=== PATIENT | male | born 1955 | race Caucasian/White ===

== ENCOUNTER → 2017-06-06 | Outpatient (CLI) | payer BC ==
[~2017-06-06] MED LIST: ASPI81TA85 PO; FIBE625T PO; INDA25TAB PO; LISI-538 PO; LOVA40TA PO; PANT40TA2 PO; VITA20008 PO
[2017-06-06 08:43] LABS: ALBUMIN/GLOBULIN RATIO 1.21 (1.00-1.93); ALKALINE PHOSPHATASE 120 U/L (45-117); ALT/SGPT 57 U/L (12-78); ANION GAP 7 MEQ/L (8-16); AST/SGOT 45 U/L (7-37); BILIRUBIN,TOTAL 0.5 MG/DL (0.2-1.0); BLOOD UREA NITROGEN 14 MG/DL (7-18); CALCIUM LEVEL 8.8 MG/DL (8.8-10.2); CARBON DIOXIDE LEVEL 31 MEQ/L (21-32); CHLORIDE LEVEL 104 MEQ/L (98-107); CHOLESTEROL LEVEL 156 MG/DL (<200); CREATININE FOR GFR 1.17 MG/DL (0.70-1.30); GLOMERULAR FILTRATION RATE > 60.0 (>49); GLUCOSE, FASTING 164 MG/DL (80-110); POTASSIUM SERUM 3.8 MEQ/L (3.5-5.1); SODIUM LEVEL 142 MEQ/L (136-145); TOTAL PROTEIN 7.3 GM/DL (6.4-8.2); TRIGLYCERIDES LEVEL 196 MG/DL (<150)
== END ==
LOC: M LAB 07:29
PROVIDERS: ATTEND Family Medicine
DX: E78.5 Hyperlipidemia, unspecified (principal); K75.81 Nonalcoholic steatohepatitis (NASH); R73.03 Prediabetes; Z12.5 Encounter for screening for malignant neoplasm of prostate
CPT/HCPCS: 36415; 80053; 80061; 83036; G0103

== ENCOUNTER 2017-07-29 15:59 | Emergency (ER) | payer BC ==
[2017-07-29] MEDS: ACETAMINOPHEN 325 MG TAB PO (21:07)
== END 2017-07-29 21:15 | disposition home or self-care (01) ==
LOC: M ED 15:59
DX: J11.1 Influenza due to unidentified influenza virus with other respiratory manifestations (principal); R04.2 Hemoptysis; I10 Essential (primary) hypertension; E78.5 Hyperlipidemia, unspecified; K21.9 Gastro-esophageal reflux disease without esophagitis; Z88.0 Allergy status to penicillin; Z88.8 Allergy status to other drugs, medicaments and biological substances
CPT/HCPCS: 99283

== ENCOUNTER → 2017-07-29 | Outpatient (CLI) | payer BC | LOC: M LRY 14:40 | DX: R04.2 Hemoptysis (principal); J84.10 Pulmonary fibrosis, unspecified | CPT/HCPCS: 71046 ==

== ENCOUNTER → 2017-11-29 | Outpatient (CLI) | payer BC ==
[2017-11-29 11:05] LABS: ANION GAP 9 MEQ/L (8-16); BLOOD UREA NITROGEN 14 MG/DL (7-18); CALCIUM LEVEL 9.1 MG/DL (8.8-10.2); CARBON DIOXIDE LEVEL 28 MEQ/L (21-32); CHLORIDE LEVEL 106 MEQ/L (98-107); CREATININE FOR GFR 1.06 MG/DL (0.70-1.30); GLOMERULAR FILTRATION RATE > 60.0 (>49); GLUCOSE, FASTING 154 MG/DL (70-100); POTASSIUM SERUM 3.7 MEQ/L (3.5-5.1); SODIUM LEVEL 143 MEQ/L (136-145)
[2017-11-29 11:18] LABS: ESTIMATED AVERAGE GLUCOSE 177 MG/DL (60-110); HEMOGLOBIN A1c 7.8 %
== END ==
LOC: M LAB 09:40
DX: R73.03 Prediabetes (principal)
CPT/HCPCS: 83036

== ENCOUNTER → 2017-12-04 | Outpatient (CLI) | payer BC | LOC: M ADAMS 11:27 | DX: R06.00 Dyspnea, unspecified (principal) | CPT/HCPCS: 84443 ==

== ENCOUNTER → 2017-12-04 | Outpatient (REF) | payer BC ==
[2017-12-04 13:42] LABS: FREE T4 0.98 NG/DL (0.76-1.46)
[2017-12-04 13:51] LABS: HEMATOCRIT 44.3 % (42.0-52.0); HEMOGLOBIN 15.3 g/dl (13.5-17.5); MEAN CORPUSCULAR HEMOGLOBIN 28.2 pg (27.0-33.0); MEAN CORPUSCULAR HGB CONC 34.5 g/dl (32.0-36.5); MEAN CORPUSCULAR VOLUME 81.7 fl (80.0-96.0); PLATELET COUNT, AUTOMATED 192 10^3/uL (150-450); RED BLOOD COUNT 5.42 10^6/uL (4.30-6.10); RED CELL DISTRIBUTION WIDTH 13.7 % (11.5-14.5); WHITE BLOOD COUNT 7.9 10^3/uL (4.0-10.0)
== END ==
LOC: M SFHCADAM 10:34
DX: R06.09 Other forms of dyspnea (principal)

== ENCOUNTER → 2018-01-26 | Outpatient (CLI) | payer BC ==
[2018-01-26 09:42] LABS: ALBUMIN 3.8 GM/DL (3.2-5.2); ALBUMIN/GLOBULIN RATIO 1.15 (1.00-1.93); ALKALINE PHOSPHATASE 108 U/L (45-117); ALT/SGPT 56 U/L (12-78); ANION GAP 8 MEQ/L (8-16); AST/SGOT 40 U/L (7-37); BILIRUBIN,TOTAL 0.4 MG/DL (0.2-1.0); BLOOD UREA NITROGEN 18 MG/DL (7-18); CALCIUM LEVEL 8.9 MG/DL (8.8-10.2); CARBON DIOXIDE LEVEL 31 MEQ/L (21-32); CHLORIDE LEVEL 105 MEQ/L (98-107); CHOLESTEROL LEVEL 133 MG/DL (<200); CHOLESTEROL RISK RATIO 3.594 (<5); CREATININE FOR GFR 1.23 MG/DL (0.70-1.30); GLOMERULAR FILTRATION RATE > 60.0 (>49); GLUCOSE, FASTING 136 MG/DL (70-100); HDL CHOLESTEROL 37 MG/DL (>40); NON-HDL-C 96 MG/DL; POTASSIUM SERUM 4.1 MEQ/L (3.5-5.1); SODIUM LEVEL 144 MEQ/L (136-145); TOTAL PROTEIN 7.1 GM/DL (6.4-8.2); TRIGLYCERIDES LEVEL 160 MG/DL (<150)
[2018-01-26 09:51] LABS: MALB URINE SIEMENS 10.6 MG/L
[2018-01-26 11:25] LABS: ESTIMATED AVERAGE GLUCOSE 143 MG/DL (60-110); HEMOGLOBIN A1c 6.6 %
== END ==
LOC: M LAB 08:42
DX: E11.9 Type 2 diabetes mellitus without complications (principal)

== ENCOUNTER → 2018-04-19 | Outpatient (CLI) | payer BC ==
[2018-04-19 10:00] LABS: ALBUMIN 4.1 GM/DL (3.2-5.2); ALBUMIN/GLOBULIN RATIO 1.32 (1.00-1.93); ALKALINE PHOSPHATASE 90 U/L (45-117); ALT/SGPT 53 U/L (12-78); ANION GAP 6 MEQ/L (8-16); AST/SGOT 43 U/L (7-37); BILIRUBIN,TOTAL 0.4 MG/DL (0.2-1.0); BLOOD UREA NITROGEN 20 MG/DL (7-18); CALCIUM LEVEL 9.6 MG/DL (8.8-10.2); CARBON DIOXIDE LEVEL 32 MEQ/L (21-32); CHLORIDE LEVEL 104 MEQ/L (98-107); CHOLESTEROL LEVEL 144 MG/DL (<200); GLOMERULAR FILTRATION RATE 59.7 (>49); GLUCOSE, FASTING 121 MG/DL (70-100); HDL CHOLESTEROL 40 MG/DL (>40); LDL CHOLESTEROL 78 MG/DL (<100); NON-HDL-C 104 MG/DL; SODIUM LEVEL 142 MEQ/L (136-145); TOTAL PROTEIN 7.2 GM/DL (6.4-8.2); TRIGLYCERIDES LEVEL 128 MG/DL (<150)
[2018-04-19 10:31] LABS: ESTIMATED AVERAGE GLUCOSE 126 MG/DL (60-110)
== END ==
LOC: M LAB 08:44
DX: E78.5 Hyperlipidemia, unspecified (principal); E11.9 Type 2 diabetes mellitus without complications
CPT/HCPCS: 80053

== ENCOUNTER → 2018-04-26 | Outpatient (CLI) | payer BC | LOC: M ADAMS 15:25 | DX: M54.31 Sciatica, right side (principal); M51.36 Other intervertebral disc degeneration, lumbar region; M51.37 Other intervertebral disc degeneration, lumbosacral region | CPT/HCPCS: 72100 ==

== ENCOUNTER → 2018-09-18 | Outpatient (REF) | payer BC ==
[~2018-09-18] MED LIST changes: -PANT40TA2 PO; +PANT40TA3 PO
[2018-09-18 13:10] LABS: BASO % 0.6 % (0.0-1.0); EOS # 0.1 10^3/uL (0.0-0.50); EOS % 1.4 % (0.0-3.0); HEMATOCRIT 28.3 % (42.0-52.0); HEMOGLOBIN 7.8 g/dl (13.5-17.5); LYMPH # 1.7 10^3/uL (1.5-4.5); MEAN CORPUSCULAR HEMOGLOBIN 18.8 pg (27.0-33.0); MEAN CORPUSCULAR HGB CONC 27.6 g/dl (32.0-36.5); MEAN CORPUSCULAR VOLUME 68.4 fl (80.0-96.0); MONO # 0.5 10^3/uL (0.0-0.8); MONO % 6.3 % (0.0-5.0); NEUTROPHILS # 4.9 10^3/uL (1.8-7.7); NEUTROPHILS % 68.1 % (36.0-66.0); PLATELET COUNT, AUTOMATED 313 10^3/uL (150-450); RED BLOOD COUNT 4.14 10^6/uL (4.30-6.10); WHITE BLOOD COUNT 7.3 10^3/uL (4.0-10.0)
[2018-09-18 13:21] LABS: ALBUMIN 3.9 GM/DL (3.2-5.2); BILIRUBIN,TOTAL 0.3 MG/DL (0.2-1.0); CALCIUM LEVEL 9.5 MG/DL (8.8-10.2); CREATININE FOR GFR 1.36 MG/DL (0.70-1.30); FREE T4 0.99 NG/DL (0.76-1.46); GLOMERULAR FILTRATION RATE 56.5 (>49); POTASSIUM SERUM 4.1 MEQ/L (3.5-5.1); THYROID STIMULATING HORMONE 1.09 uIU/ML (0.358-3.740); TOTAL PROTEIN 7.1 GM/DL (6.4-8.2)
[2018-09-18 14:22] LABS: HEMOGLOBIN A1c 5.2 %
== END ==
LOC: M SFHCADAM 09:39
PROVIDERS: ATTEND Family Medicine
DX: R06.09 Other forms of dyspnea (principal); E11.9 Type 2 diabetes mellitus without complications

== ENCOUNTER → 2018-09-18 | Outpatient (CLI) | payer BC ==
--- NOTE | 2018-09-19 04:08 | REP ---
Clinical: Dyspnea on exertion . Comparison: 12/04/2017 . Technique: PA and lateral. Findings: The mediastinum and cardiac silhouette are normal. The lung burns are clear and without acute consolidation, effusion, or pneumothorax. The skeletal structures are intact and normal. Impression: 1. No acute cardiopulmonary process. Electronically Signed by Juliocesar Cai MD 09/19/2018 04:00 A
== END ==
LOC: M ADAMS 09:41
PROVIDERS: ATTEND Family Medicine
DX: R06.09 Other forms of dyspnea (principal)

== ENCOUNTER → 2018-09-19 | Outpatient (REF) | payer BC ==
[~2018-09-19] MED LIST changes: +FERR325T3 PO; +METF500T13 PO; +VITA200021 PO; +XALA0.007 OU
[2018-09-19 20:00] LABS: BASO % 0.3 % (0.0-1.0); EOS # 0.1 10^3/uL (0.0-0.50); HEMATOCRIT 27.6 % (42.0-52.0); HEMOGLOBIN 7.6 g/dl (13.5-17.5); LYMPH # 2.6 10^3/uL (1.5-4.5); LYMPH % 27.3 % (24.0-44.0); MEAN CORPUSCULAR HEMOGLOBIN 18.9 pg (27.0-33.0); MEAN CORPUSCULAR HGB CONC 27.5 g/dl (32.0-36.5); MEAN CORPUSCULAR VOLUME 68.7 fl (80.0-96.0); MONO # 0.6 10^3/uL (0.0-0.8); MONO % 6.2 % (0.0-5.0); NEUTROPHILS # 6.1 10^3/uL (1.8-7.7); NEUTROPHILS % 64.7 % (36.0-66.0); PLATELET COUNT, AUTOMATED 317 10^3/uL (150-450); RED BLOOD COUNT 4.02 10^6/uL (4.30-6.10); WHITE BLOOD COUNT 9.5 10^3/uL (4.0-10.0)
[2018-09-19 20:15] LABS: CALCIUM LEVEL 9.1 MG/DL (8.8-10.2); CREATININE FOR GFR 1.51 MG/DL (0.70-1.30); GLOMERULAR FILTRATION RATE 50.1 (>49); PERCENT SATURATION 3.3 % (19.7-50.0); POTASSIUM SERUM 3.9 MEQ/L (3.5-5.1)
[2018-09-19 20:24] LABS: MALB URINE SIEMENS 37.8 MG/L; MAU/CREAT RATIO 11.1 MCG/MG (0.0-30.0)
== END ==
LOC: M SFHCADAM 15:39
PROVIDERS: ATTEND Family Medicine
DX: D64.9 Anemia, unspecified (principal); E11.9 Type 2 diabetes mellitus without complications

== ENCOUNTER 2018-10-01 10:09 | Day surgery (SDC) | payer BC ==
[~2018-10-01] VITALS: Ht 182.9 cm; Wt 95.2 kg
[~2018-10-01 10:09] MED LIST changes: +NS 1,000 ML IV ONE
[2018-10-01] MEDS ORDERED: PROPOFOL 500 MG/50 ML VIAL As Ordered ONE (10:52)
[2018-10-01] MEDS ORDERED: LIDOCAINE 2% INJ 100 MG/5 ML SDV (FOR ANES.) As Ordered ONE (12:03)
--- NOTE | 2018-10-01 12:16 | ROOR ---
Patient Name: Kt Meyer Procedure Date: 10/01/2018 12:03 PM Date of : 1955 Age: 63 Room: [facility], [facility] Gender: Male Note Status: Finalized Procedure: Upper GI endoscopy Indications: Iron deficiency anemia Providers: Umair JENSEN MD Referring MD: Jesse Marie MD Requesting Provider: Medicines: Monitored Anesthesia Care Complications: No immediate complications. Procedure: Pre-Anesthesia Assessment: - The heart rate, respiratory rate, oxygen saturations, blood pressure, adequacy of pulmonary ventilation, and response to care were monitored throughout the procedure. The Endoscope was introduced through the mouth, and advanced to the second part of duodenum. The upper GI endoscopy was accomplished without difficulty. The patient tolerated the procedure well. Findings: The esophagus was normal. The stomach was normal. The examined duodenum was normal. Biopsies for histology were taken with a cold forceps in the first portion of the duodenum, in the second portion of the duodenum and in the third portion of the duodenum for evaluation of celiac disease. Impression: - Normal esophagus. - Normal stomach. - Normal examined duodenum. - Biopsies were taken with a cold forceps for evaluation of celiac disease. Recommendation: - Await pathology results. Umair Jensen MD Umair JENSEN MD 10/01/2018 12:16:04 PM Electronically signed by Umair JENSEN MD Number of Addenda: 0 Note Initiated On: 10/01/2018 12:03 PM Estimated Blood Loss: Estimated blood loss: none.
--- NOTE | 2018-10-01 12:47 | ROOR ---
Patient Name: Kt Meyer Procedure Date: 10/01/2018 12:04 PM Date of : 1955 Age: 63 Room: [facility] Gender: Male Note Status: Finalized Procedure: Colonoscopy Indications: Iron deficiency anemia Providers: Umair JENSEN MD Referring MD: Jesse Marie MD Requesting Provider: Medicines: Monitored Anesthesia Care Complications: No immediate complications. Procedure: Pre-Anesthesia Assessment: - The heart rate, respiratory rate, oxygen saturations, blood pressure, adequacy of pulmonary ventilation, and response to care were monitored throughout the procedure. The Colonoscope was introduced through the anus and advanced to 10 cm into the ileum. The colonoscopy was performed without difficulty. The patient tolerated the procedure well. The quality of the bowel preparation was good. Findings: The perianal and digital rectal examinations were normal. A single localized non-bleeding erosion was found in the proximal ascending colon. No stigmata of recent bleeding were seen. This was biopsied with a cold forceps for histology. A scattered area of nodular mucosa was found in the sigmoid colon. Biopsies were taken with a cold forceps for histology. Multiple small and large-mouthed diverticula were found in the sigmoid colon. Internal hemorrhoids were found during retroflexion. The hemorrhoids were moderate. The terminal ileum appeared normal. Impression: - The examined portion of the ileum was normal. - A single small erosion in the proximal ascending colon. Biopsied. - A few tiny dark blue venous blebs/nodules in the sigmoid colon. Biopsied. - Diverticulosis in the sigmoid colon. - Internal hemorrhoids. - The colon was otherwise normal. Recommendation: - To visualize the small bowel, perform video capsule endoscopy at the next available appointment. - My office will call you in the next few days to set you up for this study/exam. Umair Jensen MD Umair JENSEN MD 10/01/2018 12:47:01 PM Electronically signed by Umair JENSEN MD Number of Addenda: 0 Note Initiated On: 10/01/2018 12:04 PM Estimated Blood Loss: Estimated blood loss: none.
[2018-10-01 13:23] VITALS: BP 140/77
== END 2018-10-01 13:22 | disposition home or self-care (01) ==
LOC: M OPP 10:09
PROVIDERS: ATTEND Internal Medicine Gastroenterology
DX: K57.30 Diverticulosis of large intestine without perforation or abscess without bleeding (principal); K64.8 Other hemorrhoids; K63.3 Ulcer of intestine; K63.89 Other specified diseases of intestine; D50.9 Iron deficiency anemia, unspecified

== ENCOUNTER → 2018-10-17 | Outpatient (CLI) | payer BC ==
[~2018-10-17] MED LIST changes: -NS 1,000 ML IV ONE
[2018-10-17 15:42] LABS: HEMATOCRIT 34.3 % (42.0-52.0); HEMOGLOBIN 9.6 g/dl (13.5-17.5); MEAN CORPUSCULAR VOLUME 74.9 fl (80.0-96.0); PLATELET COUNT, AUTOMATED 235 10^3/uL (150-450); RED BLOOD COUNT 4.58 10^6/uL (4.30-6.10); WHITE BLOOD COUNT 9.8 10^3/uL (4.0-10.0)
[2018-10-17 16:08] LABS: CREATININE FOR GFR 1.31 MG/DL (0.70-1.30); PERCENT SATURATION 22.2 % (19.7-50.0); POTASSIUM SERUM 3.8 MEQ/L (3.5-5.1)
[2018-10-17 16:15] LABS: FOLATE 11.4 NG/ML
== END ==
LOC: M LAB 14:51
PROVIDERS: ATTEND Family Medicine
DX: D50.9 Iron deficiency anemia, unspecified (principal); N18.3 Chronic kidney disease, stage 3 (moderate)

== ENCOUNTER → 2018-11-29 | Outpatient (REF) | payer BC ==
[2018-11-29 13:17] LABS: HEMATOCRIT 45.9 % (42.0-52.0); HEMOGLOBIN 14.2 g/dl (13.5-17.5); MEAN CORPUSCULAR HEMOGLOBIN 25.9 pg (27.0-33.0); MEAN CORPUSCULAR HGB CONC 30.9 g/dl (32.0-36.5); MEAN CORPUSCULAR VOLUME 83.6 fl (80.0-96.0); PLATELET COUNT, AUTOMATED 186 10^3/uL (150-450); RED BLOOD COUNT 5.49 10^6/uL (4.30-6.10); WHITE BLOOD COUNT 7.1 10^3/uL (4.0-10.0)
== END ==
LOC: M SFHCADAM 10:28
PROVIDERS: ATTEND Family Medicine
DX: D50.9 Iron deficiency anemia, unspecified (principal)

== ENCOUNTER → 2018-12-27 | Outpatient (REF) | payer BC | LOC: M LAB REF 13:19 | PROVIDERS: ATTEND Ophthalmology | DX: D23.111 Other benign neoplasm of skin of right upper eyelid, including canthus (principal); D23.112 Other benign neoplasm of skin of right lower eyelid, including canthus ==

== ENCOUNTER → 2019-02-22 | Outpatient (CLI) | payer BC ==
[2019-02-22 09:56] LABS: HEMATOCRIT 44.1 % (42.0-52.0); HEMOGLOBIN 14.6 g/dl (13.5-17.5); MEAN CORPUSCULAR HEMOGLOBIN 28.5 pg (27.0-33.0); MEAN CORPUSCULAR HGB CONC 33.1 g/dl (32.0-36.5); MEAN CORPUSCULAR VOLUME 86.1 fl (80.0-96.0); PLATELET COUNT, AUTOMATED 170 10^3/uL (150-450); RED BLOOD COUNT 5.12 10^6/uL (4.30-6.10); WHITE BLOOD COUNT 6.3 10^3/uL (4.0-10.0)
[2019-02-22 10:18] LABS: ALT/SGPT 33 U/L (12-78); BILIRUBIN,TOTAL 0.6 MG/DL (0.2-1.0); BLOOD UREA NITROGEN 19 MG/DL (7-18); CALCIUM LEVEL 9.2 MG/DL (8.8-10.2); CARBON DIOXIDE LEVEL 30 MEQ/L (21-32); CHLORIDE LEVEL 107 MEQ/L (98-107); CHOLESTEROL LEVEL 134 MG/DL (<200); CHOLESTEROL RISK RATIO 3.722 (<5); CREATININE FOR GFR 1.24 MG/DL (0.70-1.30); FERRITIN 30 NG/ML (26-388); GLOMERULAR FILTRATION RATE > 60.0 (>49); GLUCOSE, FASTING 99 MG/DL (70-100); HDL CHOLESTEROL 36 MG/DL (>40); IRON (FE) 87 UG/DL (65-175); LDL CHOLESTEROL 70 MG/DL (<100); NON-HDL-C 98 MG/DL; PERCENT SATURATION 24.4 % (19.7-50.0); SODIUM LEVEL 143 MEQ/L (136-145); TOTAL IRON BINDING CAPACITY 356 UG/DL (250-450); TOTAL PROTEIN 6.9 GM/DL (6.4-8.2); TRIGLYCERIDES LEVEL 138 MG/DL (<150)
[2019-02-22 10:46] LABS: HEMOGLOBIN A1c 5.4 %
== END ==
LOC: M LAB 09:05
PROVIDERS: ATTEND Family Medicine
DX: N18.3 Chronic kidney disease, stage 3 (moderate) (principal); D50.0 Iron deficiency anemia secondary to blood loss (chronic); E11.9 Type 2 diabetes mellitus without complications

== ENCOUNTER 2019-10-17 09:12 | Observation (INO) | payer BC ==
[~2019-10-17] VITALS: Ht 182.9 cm; Wt 98.8 kg
[2019-10-17 10:09] LABS: BASO % 0.4 % (0.0-1.0); EOS # 0.1 10^3/uL (0.0-0.5); EOS % 1.3 % (0.0-3.0); HEMATOCRIT 35.8 % (42.0-52.0); HEMOGLOBIN 10.1 g/dl (13.5-17.5); LYMPH # 1.2 10^3/uL (1.5-5.0); LYMPH % 17.9 % (24.0-44.0); MEAN CORPUSCULAR HEMOGLOBIN 19.7 pg (27.0-33.0); MEAN CORPUSCULAR HGB CONC 28.2 g/dl (32.0-36.5); MEAN CORPUSCULAR VOLUME 69.8 fl (80.0-96.0); MONO # 0.4 10^3/uL (0.0-0.8); MONO % 5.7 % (0.0-5.0); NEUTROPHILS # 5.1 10^3/uL (1.5-8.5); NEUTROPHILS % 74.4 % (36.0-66.0); PLATELET COUNT, AUTOMATED 223 10^3/uL (150-450); RED BLOOD COUNT 5.13 10^6/uL (4.30-6.10); WHITE BLOOD COUNT 6.9 10^3/uL (4.0-10.0)
[2019-10-17 10:19] LABS: INR 1.11
[2019-10-17] MEDS ORDERED: ALBUTEROL 90 MCG/ACT 8GM HFA INHALER INH ONE (10:30)
[2019-10-17] MEDS ORDERED: dexameTHASONE 20MG/5ML VIAL (J1100 PER 1MG) IV ONE (10:30)
[2019-10-17 10:32] LABS: ALBUMIN 3.8 GM/DL (3.2-5.2); ALT/SGPT 31 U/L (12-78); BILIRUBIN,DIRECT 0.1 MG/DL (0.0-0.2); BILIRUBIN,TOTAL 0.4 MG/DL (0.2-1.0); CK-MB VALUE MASS 2.1 NG/ML (<3.6); CPK CREATINE PHOSPHOKINASE 227 U/L (39-308); LIPASE 139 U/L (73-393); MAGNESIUM LEVEL 2.1 MG/DL (1.8-2.4); MB/CK RELATIVE INDEX 0.93 (< OR =4); TOTAL PROTEIN 7.2 GM/DL (6.4-8.2); TROPONIN I < 0.02 NG/ML (< 0.10)
--- NOTE | 2019-10-17 11:20 | REP ---
REASON: Syncopal episode. COMPARISON: Multiple. The latest 07/29/2017. CHEST PORTABLE: FINDINGS: The technique utilized in obtaining the radiograph has magnified the cardiac silhouette and accentuated the interstitial markings. The superior mediastinal structures are midline. The cardiac silhouette is unremarkable in size, shape, and position. The diaphragmatic surfaces of the lungs are regular, and the costophrenic angles are clear. The pulmonary burns are clear. The imaged osseous structures are intact. IMPRESSION: There is no acute cardiopulmonary disease. Note is again made of a calcified granuloma in the right upper lobe. Electronically Signed by Rodger Ferris DO 10/17/2019 01:25 P
[2019-10-17] MEDS ORDERED: GLUCAGON INJ 1MG VIAL SC PRN (14:15)
[2019-10-17] MEDS ORDERED: GLUCOSE 4GM CHEW TABLET PO PRN (14:15)
[2019-10-17] MEDS ORDERED: ACETAMINOPHEN TAB 650MG DOSE (2X325MG) PO PRN (14:15)
[2019-10-17] MEDS ORDERED: DEXTROSE 50% 50 ML SYRINGE IV PRN (14:15)
--- NOTE | 2019-10-17 14:20 | HPEPDOC ---
General Date of Admission 10/17/2019 Date of Service: October 17, 2019 Chief Complaint The patient is a 64-year-old male who presented to the hospital after experiencing a brief loss of consciousness History of Present Illness Patient is a 64-year-old male with a PMHx of HTN, Pre-DM2, DLP, Iron deficiency anemia, Vitamin D deficiency, Glaucoma, GERD who presented to the hospital after experiencing a syncopal episode while at home. Patient noted that this morning he went turkey hunting. He had not eaten breakfast and had shot a turkey outside of his window.. He reported that he went outside and started dressing it. He soon began to experience shortness of breath and decided to sit down in a chair. The next thing the patient remembers is his calling out his name, then going back into the house to contact 911. Patient denies any head trauma. Patient reported that upon waking up. He denied any chest pain, shortness of breath, cough, palpitations, nausea, vomiting, abdominal pain, cause patient, diarrhea, or urinary discomfort. He reports that he hasnt expressed any recent fevers or chills. Denies any change in color or consistency of his stool. Patient has reported that he did experience a similar event in the past. That occurred July 2019. . She reported that he was in [place] at the time visiting relatives. He noted that he was eating lunch and had passed out. EMS was contacted. Patient reports that they have checked EKGs and performed orthostatic vital signs were negative. Patient had contacted his primary care provider back in [place] for further assistance. Patient has not seen a cma or lpn in the past. He does report having a stress test approximately 3 years ago that was negative. He does not report any history of strokes or MIs. Patient reports that his appetite is fairly normal. Denies any significant changes of his weight within the last 1 year. Home Medications Scheduled Aspirin (Aspir 81) 81 Mg Tab, 81 MG PO DAILY, (Reported) Calcium Polycarbophil (Fibercon) 625 Mg Tab, 625 MG PO BID, (Reported) Cholecalciferol (Vitamin D3) (Vitamin D3) 2,000 Unit Capsule, 2,000 UNIT PO DAILY, (Reported) Ferrous Sulfate (Ferrous Sulfate) 325 Mg Tablet.dr, 325 MG PO BID, (Reported) Indapamide (Indapamide) 2.5 Mg Tab, 1.25 MG PO DAILY, (Reported) Latanoprost (Xalatan) 2.5 Ml Drops, 1 DROP OU QHS, (Reported) Lisinopril (Lisinopril) 20 Mg Tab, 20 MG PO QHS, (Reported) Lovastatin (Lovastatin) 40 Mg Tab, 40 MG PO DAILY, (Reported) Metformin HCl (Metformin HCl) 500 Mg Tablet, 500 MG PO DAILY, (Reported) Pantoprazole Sodium (Pantoprazole Sodium) 40 Mg Tab, 40 MG PO DAILY, (Reported) Allergies Coded Allergies: Penicillins (Verified Allergy, Severe, rash itch,swelling of tongue lips, 09/27/18) ibuprofen (Verified Allergy, Severe, rash.itch,swelling of tongue lips, 09/27/18) Past Medical History Medical History HTN, Pre-DM2, DLP, Iron deficiency anemia, Vitamin D deficiency, Glaucoma, GERD Surgical History EGD and colonoscopy performed 01/[address] 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 [employer] Review of Systems Other systems 10 point review of systems complete, all negative otherwise stated in HPI Vital Signs - Vitals: BP 155/74, HR 73, RR 16, Sat 97%RA, Temp 96.8F - General: Lying in bed, Speaking in full sentences, AAOx3 - HEENT: NC, AT, PERRLA, EOMI - CVS: RRR, +S1S2 - Lungs: Fair air entry bilaterally, No appreciable wheezing / rales / rhonchi - Abdomen: Soft, Non-distended, Non-tender - Extremities: No lower extremity edema, No calf tenderness - Neuro: No focal motor or sensory deficit - Skin: No visible rashes Laboratory Data Labs 24H Laboratory Tests 2 10/17/19 09:46: POC Glucose (Misc Panel) 156H, POC Sodium (Misc Panel) 141, POC Potassium (Misc Panel) 4.0, POC Chloride (Misc Panel) 108, POC Total CO2 (Misc Panel) 23.0, POC Blood Urea Nitrogen (Misc Panel 19, POC Ionized Calcium (Misc Panel) 4.2L, POC Creatinine (Misc Panel) 1.2, POC Hematocrit (Misc Panel) 37.0L 10/17/19 09:56: Immature Granulocyte % (Auto) 0.3, Neutrophils (%) (Auto) 74.4H, Lymphocytes (%) (Auto) 17.9L, Monocytes (%) (Auto) 5.7H, Eosinophils (%) (Auto) 1.3, Basophils (%) (Auto) 0.4, Neutrophils # (Auto) 5.1, Lymphocytes # (Auto) 1.2L, Monocytes # (Auto) 0.4, Eosinophils # (Auto) 0.1, Basophils # (Auto) 0.0, Nucleated Red Blood Cells % (auto) 0.0, Prothrombin Time 14.0, Prothromb Time International Ratio 1.11, Magnesium Level 2.1, Total Bilirubin 0.4, Direct Bilirubin 0.1, Aspartate Amino Transf (AST/SGOT) 22, Alanine Aminotransferase (ALT/SGPT) 31, Alkaline Phosphatase 92, Total Creatine Kinase 227, Creatine Kinase MB 2.1, Creatine Kinase MB Relative Index 0.93, Troponin I < 0.02, Total Protein 7.2, Albumin 3.8, Albumin/Globulin Ratio 1.12, Lipase 139 10/17/19 13:36: CBC/BMP Laboratory Tests 10/17/19 09:56 Plan / VTE VTE Prophylaxis Ordered?: Yes Plan Plan Syncope - Patient reported that earlier today he is experiencing brief episode of shortness of breath that had passed out - Has reported a similar event June or July 2019 while in [place] - Patient does not have any pre or post-dromal symptoms - Orthostatic vital signs are negative - Lab work was reviewed and is currently benign - Troponin first set is negative; will continue to trend - EKG is noted to be in sinus rhythm without any ischemic changes - CT head 10/16: Negative - Will continue with telemetry monitoring - Will check echocardiogram - Patient may ultimately require outpatient cardiology follow-up for Holter monitor - Will have physical therapy evaluate Calcified granuloma - CXR 10/16: There is no acute cardiopulmonary disease. Note is again made of a calcified granuloma in the right upper lobe. - Results of imaging study were discussed with patient - Patient has verbalized understanding for follow-up with primary care provider HTN - BP moderately elevated - c/w Lisinopril Pre-DM2 - A1c of 6.2 - Will check glucose - Will start consistent carb diet DLP - c/w statin Iron deficiency anemia - Patient was advised that he should continue with iron supplementation, rodríguez lamb, has not started this yet Vitamin D deficiency - c/w Supplementation Glaucoma - c/w eye drops GERD - c/w Protonix DVT prophylaxis - Will start Heparin ELISA DE LA GARZA MD October 17, 2019 14:19
--- NOTE | 2019-10-17 14:29 | REP ---
REASON FOR EXAM: Syncope. COMPARISON: 10/11/2012 CT BRAIN WITHOUT CONTRAST: TECHNIQUE: 4.5 mm contiguous transaxial sections were obtained from the skull base to the cerebral convexities with thin cuts through the posterior fossa without the administration of intravenous contrast. FINDINGS: The ventricles and sulci are consistent with the patient's age. There are no extra-axial fluid collections. There is no mass effect. The deep cerebral white matter is consistent with the patient's age. The orbital and petrous structures, cerebellopontine angles, and posterior fossa are unremarkable. The sella turcica, cavernous, and paracavernous structures are essentially unremarkable. The visualized portions of the paranasal sinuses and mastoid air cells are clear. Images of the skull base show no gross abnormality. IMPRESSION: Essentially unremarkable CT examination of the brain. There has been no significant change from the prior exam. Electronically Signed by Rodger Ferris DO 10/17/2019 04:08 P
[2019-10-17] MEDS ORDERED: INDA125TA PO (14:45)
[2019-10-17] MEDS ORDERED: BRIM1OPD OU (14:51)
[2019-10-17] MEDS ORDERED: BAYE325T12 PO (14:52)
[2019-10-17] MEDS ORDERED: FERR325T3 PO (14:56)
--- NOTE | 2019-10-17 15:40 | ECGEPIP ---
[facility] - ED Test Date: 2019-10-17 Pat Name: BEENA SPARKS Department: Room: - Gender: Male [employer]: : 1955 Requested By: UMAIR Price Order Number: [id number] Reading MD: Umair Ventura Measurements Intervals [place] Rate: 77 P: 32 MI: 162 QRS: 1 QRSD: 108 T: 12 QT: 381 QTc: 433 Interpretive Statements SINUS RHYTHM INCOMPLETE RIGHT BUNDLE BRANCH BLOCK Comparison tracing not on file Electronically Signed on 10-17-2019 15:39:47 EDT by Umair Ventura
[2019-10-17 16:59] LABS: CPK CREATINE PHOSPHOKINASE 184 U/L (39-308); MB/CK RELATIVE INDEX 1.09 (< OR =4); TROPONIN I < 0.02 NG/ML (< 0.10)
[2019-10-17 17:00] VITALS: BP 180/95
[2019-10-17] MEDS ORDERED: SLF 3 ML SYR IV PRN (17:30)
[2019-10-17 20:00] VITALS: BP 169/79
[2019-10-17] MEDS ORDERED: LATANOPROST 0.005% OPHTH SOLN 2.5 ML OU SCH (21:00)
[2019-10-17] MEDS: BRIMONIDINE 0.1% OPHTH SOLN 5 ML OU SCH (21:19)
[2019-10-17] MEDS: HEPARIN SOD (PORCINE) 5000UNITS/ML VIAL (J1644 PER 1000UNITS) SC SCH (21:20)
[2019-10-17] MEDS ORDERED: lisinopriL 5 MG TAB PO ONE (22:00)
[2019-10-17] MEDS: SLF 3 ML SYR IV SCH (22:30)
[2019-10-17 22:32] LABS: CPK CREATINE PHOSPHOKINASE 191 U/L (39-308); MB/CK RELATIVE INDEX 1.05 (< OR =4); TROPONIN I < 0.02 NG/ML (< 0.10)
[2019-10-18] VITALS: BP 165/88
[2019-10-18 04:00] VITALS: BP 177/83
[2019-10-18] MEDS: HEPARIN SOD (PORCINE) 5000UNITS/ML VIAL (J1644 PER 1000UNITS) SC SCH (05:00)
[2019-10-18] MEDS: SLF 3 ML SYR IV SCH (05:01)
[2019-10-18 06:13] LABS: BASO % 0.4 % (0.0-1.0); EOS # 0.1 10^3/uL (0.0-0.5); EOS % 1.7 % (0.0-3.0); HEMATOCRIT 33.7 % (42.0-52.0); HEMOGLOBIN 9.7 g/dl (13.5-17.5); LYMPH % 28.3 % (24.0-44.0); MEAN CORPUSCULAR HGB CONC 28.8 g/dl (32.0-36.5); MEAN CORPUSCULAR VOLUME 69.6 fl (80.0-96.0); MONO # 0.5 10^3/uL (0.0-0.8); MONO % 6.5 % (0.0-5.0); NEUTROPHILS # 4.5 10^3/uL (1.5-8.5); NEUTROPHILS % 62.8 % (36.0-66.0); PLATELET COUNT, AUTOMATED 232 10^3/uL (150-450); RED BLOOD COUNT 4.84 10^6/uL (4.30-6.10); WHITE BLOOD COUNT 7.2 10^3/uL (4.0-10.0)
[2019-10-18 06:19] LABS: BLOOD UREA NITROGEN 14 MG/DL (7-18); CALCIUM LEVEL 8.6 MG/DL (8.8-10.2); CARBON DIOXIDE LEVEL 28 MEQ/L (21-32); CHLORIDE LEVEL 107 MEQ/L (98-107); CREATININE FOR GFR 1.17 MG/DL (0.70-1.30); GLOMERULAR FILTRATION RATE > 60.0 (>49); GLUCOSE, FASTING 100 MG/DL (70-100); POTASSIUM SERUM 3.7 MEQ/L (3.5-5.1); SODIUM LEVEL 142 MEQ/L (136-145)
[2019-10-18 08:00] VITALS: BP 158/82
[2019-10-18 08:11] VITALS: BP 158/82
[2019-10-18] MEDS: BRIMONIDINE 0.1% OPHTH SOLN 5 ML OU SCH (08:12)
[2019-10-18] MEDS ORDERED: ASPIRIN 81 MG ENTERIC TAB PO SCH (09:00)
[2019-10-18] MEDS ORDERED: FERROUS SULFATE 325MG TAB PO SCH (09:00)
[2019-10-18] MEDS ORDERED: VITAMIN D 1,000 INTERNATIONAL UNITS TABLET PO SCH (09:00)
[2019-10-18] MEDS ORDERED: INDAPAMIDE 1.25MG TABLET PO SCH (09:00)
[2019-10-18] MEDS ORDERED: lisinopriL 20 MG TAB PO SCH (09:00)
[2019-10-18] MEDS ORDERED: PANTOPRAZOLE 40MG TAB (PROTONIX) PO SCH (09:00)
--- NOTE | 2019-10-18 10:41 | ECHO ---
DATE OF STUDY: 10/17/2019 REFERRING PHYSICIAN: Heavenly Dykes MD INDICATION: Syncope. HEIGHT: 183 cm WEIGHT: 98 kg 2D MEASUREMENTS: Aortic anulus: 2.1 cm Aortic root: 3.2 cm Left atrium: 3.9 cm Ventricular septum: 0.9 cm Posterior wall: 1.02 cm Left ventricle diastole: 4.7 cm DOPPLER MEASUREMENTS: No aortic stenosis. No aortic regurgitation. Aortic valve velocity: 136 cm/s LVOT velocity: 111 cm/s LVOT VTI: 24.4 cm No mitral stenosis. No mitral regurgitation. Mitral E velocity: 65.6 cm/s Mitral A velocity: 74.1 cm/s Mitral deceleration time: 254 ms No tricuspid regurgitation. No pulmonic regurgitation. Pulmonary acceleration time: 123 ms (normal) MITRAL ANNULAR TISSUE DOPPLER: E prime septal: 7.0 cm/s E prime lateral: 7.1 cm/s DESCRIPTION: Rhythm was sinus. Image quality was fair. This was a 2D, M-mode, color flow Doppler and pulse wave Doppler examination and included mitral annular tissue Doppler. CONCLUSIONS: 1. Normal left ventricle internal dimensions and wall thickness. Normal regional left ventricle (LV) wall motion and wall thickening. Normal LV systolic function. Left ventricular ejection fraction (LVEF) 65% by visual estimate. Grade 1 LV diastolic dysfunction (impaired relaxation filling pattern). 2. Very mild aortic valve sclerosis of a three-cuspid aortic valve. No aortic regurgitation. 3. No pericardial effusion. 4. Otherwise, normal-appearing echocardiogram Doppler findings.
[2019-10-18 10:56] VITALS: BP 138/70
--- NOTE | 2019-10-18 11:01 | DS.PDOC ---
Discharge Summary General Date of Admission October 17, 2019 at 09:13 Date of Discharge 10/18/2019 Discharge Summary PROCEDURES PERFORMED DURING STAY: [None]. ADMITTING DIAGNOSES / DISCHARGE DIAGNOSES: Syncope - etiology unclear Calcified granuloma HTN Pre-DM2 DLP Iron deficiency anemia Vitamin D deficiency Glaucoma GERD DVT prophylaxis COMPLICATIONS/CHIEF COMPLAINT: Syncope. HISTORY OF PRESENT ILLNESS: Patient is a 64-year-old male with a PMHx of HTN, Pre-DM2, DLP, Iron deficiency anemia, Vitamin D deficiency, Glaucoma, GERD who presented to the hospital after experiencing a syncopal episode while at home. Patient noted that this morning he went turkey hunting. He had not eaten [address] and had shot a turkey outside of his window.. He reported that he went outside and started dressing it. He soon began to experience shortness of breath and decided to sit down in a chair. The next thing the patient remembers is his calling out his name, then going back into the house to contact 911. Patient denies any head trauma. Patient reported that upon waking up. He denied any chest pain, shortness of breath, cough, palpitations, nausea, vomiting, abdominal pain, cause patient, di arrhea, or urinary discomfort. He reports that he hasnt expressed any recent fevers or chills. Denies any change in color or consistency of his stool. Patient has reported that he did experience a similar event in the past. That occurred July 2019. . She reported that he was in [place] at the time visiting relatives. He noted that he was eating lunch and had passed out. EMS was contacted. Patient reports that they have checked EKGs and performed orthostatic vital signs were negative. Patient had contacted his primary care provider back in [place] for further assistance. 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 He does report having a stress test approximately 3 years ago that was negative. He does not report any history of strokes or MIs. HOSPITAL COURSE: Syncope - etiology unclear - Patient reported that earlier today he is experiencing brief episode of shor tness of breath that had passed out / Did not have any pre or post-dromal symptoms - Has reported a similar event June or July 2019 while in [place] / - Orthostatic vital signs are negative - Troponin x3 negative - EKG is noted to be in sinus rhythm without any ischemic changes - CT head 10/16: Negative - No events with telemetry monitoring - Echocardiogram 10/16: Normal LV, Normal systolic function, G1 DD, Very mild AV sclerosis, no AR, No pericardial effusion, otherwise normal ECHO - Cleared HSE for DC home - Will have outpatient follow up with Dr. Thomas and Cardiology within 7 days - may require evaluation for Holter monitor Calcified granuloma - CXR 10/16: There is no acute cardiopulmonary disease. Note is again made of a calcified granuloma in the right upper lobe. - Results of imaging study were discussed with patient - Patient has verbalized understanding for follow-up with primary care provider HTN - BP moderately elevated - c/w Lisinopril Pre-DM2 - A1c of 6.2 - Advised patient to continue with consistent carb diet DLP - c/w statin Iron deficiency anemia - Patient was advised that he should continue with iron supplementation, however, has not started this yet - Will continue with supplementation as an outpatient Vitamin D deficiency - c/w Supplementation Glaucoma - c/w eye drops GERD - c/w Protonix DVT prophylaxis - c/w Heparin DISCHARGE MEDICATIONS: Please see below. ALLERGIES: Please see below. PHYSICAL EXAMINATION ON DISCHARGE: Vitals (See below) General: Lying in bed, appears comfortable, AAOx3 HEENT: NC, AT CVS: +S1S2 Lungs: Fair air entry b/l, no appreicable wheezing / rhonchi / rales Abdomen: Soft, ND, NT Extremities: - Edema, - Calf tenderness LABORATORY DATA: Please see below. ACTIVITY: [As tolerated]. DISCHARGE PLAN: Follow up with PCP and Cardiology within 7 days Remain compliant with treatment plan and medications Return to the ER if you experience any problems DISPOSITION: Home DISCHARGE CONDITION: [Stable]. TIME SPENT ON DISCHARGE: 35 minutes Vital Signs/I&Os Vital Signs Date Time Temp Pulse Resp B/P (MAP) Pulse Ox O2 Delivery O2 Flow Rate FiO2 10/18/19 08:11 158/82 10/18/19 08:00 98.7 77 16 97 Room Air I&O- Last 24 Hours up to 6 AM 10/18/19 05:59 Intake Total 720 ml Output Total 1125 ml Balance -405 ml Laboratory Data Labs 24H Laboratory Tests 2 10/17/19 13:36: Coronavirus (COVID-19)(PCR) NEGATIVE 10/17/19 16:18: Total Creatine Kinase 184, Creatine Kinase MB 2.0, Creatine Kinase MB Relative Index 1.09, Troponin I < 0.02 10/17/19 17:03: Bedside Glucose (Misc Panel) 83 10/17/19 21:26: Bedside Glucose (Misc Panel) 118H 10/17/19 21:51: Total Creatine Kinase 191, Creatine Kinase MB 2.0, Creatine Kinase MB Relative Index 1.05, Troponin I < 0.02 10/18/19 05:19: Immature Granulocyte % (Auto) 0.3, Neutrophils (%) (Auto) 62.8, Lymphocytes (%) (Auto) 28.3, Monocytes (%) (Auto) 6.5H, Eosinophils (%) (Auto) 1.7, Basophils (%) (Auto) 0.4, Neutrophils # (Auto) 4.5, Lymphocytes # (Auto) 2.0, Monocytes # (Auto) 0.5, Eosinophils # (Auto) 0.1, Basophils # (Auto) 0.0, Nucleated Red Blood Cells % (auto) 0.0, Anion Gap 7L, Glomerular Filtration Rate > 60.0, Calcium Level 8.6L, Magnesium Level 2.0 CBC/BMP Laboratory Tests 10/18/19 05:19 FSBS Laboratory Tests Test 10/17/19 17:03 10/17/19 21:26 Range/Units Bedside Glucose (Misc Panel) 83 118 80-115 MG/DL Discharge Medications Scheduled Aspirin (Aspir 81) 81 Mg Tab, 81 MG PO DAILY, (Reported) Brimonidine Tartrate (Alphagan P) 0.1% 5ML Drops, 1 DROP OU BID, (Reported) Cholecalciferol (Vitamin D3) (Vitamin D3) 2,000 Unit Capsule, 2,000 UNIT PO DAILY, (Reported) Ferrous Sulfate (Ferrous Sulfate) 325 Mg Tablet.dr, 325 MG PO BID, (Reported) NEW MED, HASN'T STARTED YET Indapamide (Indapamide) 1.25 Mg Tablet, 1.25 MG PO DAILY, (Reported) Latanoprost (Xalatan) 2.5 Ml Drops, 1 DROP OU QHS, (Reported) Lisinopril (Lisinopril) 20 Mg Tab, 20 MG PO DAILY, (Reported) Lovastatin (Lovastatin) 40 Mg Tab, 40 MG PO QHS, (Reported) Pantoprazole Sodium (Pantoprazole Sodium) 40 Mg Tab, 40 MG PO DAILY, (Reported) Scheduled PRN Aspirin (Aspirin) 325 Mg Tablet, 325 MG PO BID PRN for PAIN, (Reported) Allergies Coded Allergies: Penicillins (Verified Allergy, Severe, rash itch,swelling of tongue lips, 09/27/18) ibuprofen (Verified Allergy, Severe, rash.itch,swelling of tongue lips, 09/27/18) ELISA DE LA GARZA MD October 18, 2019 11:01
[2019-10-18] MEDS ORDERED: SIMVASTATIN 40 MG TAB PO SCH (21:00)
== END 2019-10-18 12:07 | disposition home or self-care (01) ==
LOC: M ED 09:12 → M ED INP 09:13 → ENRESERV 15:10 → M PCU 16:44
PROVIDERS: ADMIT Internal Medicine; ATTEND Internal Medicine
DX: R55 Syncope and collapse (principal); I10 Essential (primary) hypertension; R73.03 Prediabetes; E78.49 Other hyperlipidemia; E55.9 Vitamin D deficiency, unspecified; D50.9 Iron deficiency anemia, unspecified; H40.9 Unspecified glaucoma; K21.9 Gastro-esophageal reflux disease without esophagitis; Z79.82 Long term (current) use of aspirin; Z79.899 Other long term (current) drug therapy; Z88.0 Allergy status to penicillin; Z88.8 Allergy status to other drugs, medicaments and biological substances
CPT/HCPCS: 36415; 70450; 71045; 80047; 80048; 82248; 82550; 82553; 83690; 83735; 85025; 85610; 86850; 86900; 86901; 93005; 93041; 93306; 94760; 96372; 97161; 99285; J1644; U0002

== ENCOUNTER → 2019-12-05 | Outpatient (CLI) | payer BC ==
[~2019-12-05] MED LIST changes: +BAYE325T12 PO; +BRIM1OPD OU; +INDA125TA PO; +META0.52 PO; +VITAD1000T PO
== END ==
LOC: M LABSMTC 11:40
PROVIDERS: ATTEND Anesthesiology
DX: Z01.818 Encounter for other preprocedural examination (principal); Z11.59 Encounter for screening for other viral diseases
CPT/HCPCS: C9803; U0003

== ENCOUNTER 2019-12-08 11:38 | Day surgery (SDC) | payer BC ==
[~2019-12-08] VITALS: Ht 182.9 cm; Wt 97.1 kg
[~2019-12-08 11:38] MED LIST changes: -ASPI81TA85 PO; +ASPI81TA86 PO; +D31000TA2 PO; +NS 1,000 ML IV ONE; +PANT40TA29 PO; -PANT40TA3 PO; -VITAD1000T PO
[2019-12-08] MEDS ORDERED: LIDOCAINE 2% 100MG/5ML SDV (FOR ANES.) As Ordered ONE (13:27)
[2019-12-08] MEDS ORDERED: propofoL 200 MG/20 ML VIAL As Ordered ONE (13:27)
[2019-12-08] MEDS ORDERED: fentaNYL 100 MCG/2 ML INJECTION (J3010) As Ordered ONE (13:27)
--- NOTE | 2019-12-08 13:37 | ROOR ---
Patient Name: Kt Meyer Procedure Date: 12/08/2019 1:22 PM Date of : 1955 Age: 64 Room: [facility] Gender: Male Note Status: Finalized Procedure: Upper GI endoscopy Indications: Iron deficiency anemia Providers: Umair JENSEN MD Referring MD: Jesse Marie MD Requesting Provider: Medicines: Monitored Anesthesia Care Complications: No immediate complications. Procedure: Pre-Anesthesia Assessment: - The heart rate, respiratory rate, oxygen saturations, blood pressure, adequacy of pulmonary ventilation, and response to care were monitored throughout the procedure. The Endoscope was introduced through the mouth, and advanced to the third part of duodenum. The upper GI endoscopy was accomplished without difficulty. The patient tolerated the procedure well. Findings: The examined esophagus was normal. A few 5 mm semi-sessile fundic gland polyps with no bleeding and no stigmata of recent bleeding were found in the gastric fundus and in the gastric body. Biopsies were taken with a cold forceps for histology. The entire examined stomach was otherwise normal. The examined duodenum was normal. Biopsies for histology were taken with a cold forceps for evaluation of celiac disease. Impression: - Normal esophagus. - A few fundic gland polyps. Biopsied. - Otherwise Normal stomach. - Normal examined duodenum. Biopsied. Recommendation: - Observe patient's clinical course. Umair Jensen MD Umair JENSEN MD 12/08/2019 1:37:09 PM Electronically signed by Umair JENSEN MD Number of Addenda: 0 Note Initiated On: 12/08/2019 1:22 PM Estimated Blood Loss: Estimated blood loss: none.
--- NOTE | 2019-12-08 14:10 | ROOR ---
Patient Name: Kt Meyer Procedure Date: 12/08/2019 1:23 PM Date of : 1955 Age: 64 Room: [facility] Gender: Male Note Status: Finalized Procedure: Colonoscopy Indications: Iron deficiency anemia Providers: Umair EID MD Referring MD: Jesse Marie MD Requesting Provider: Medicines: Monitored Anesthesia Care Complications: No immediate complications. Procedure: Pre-Anesthesia Assessment: - The heart rate, respiratory rate, oxygen saturations, blood pressure, adequacy of pulmonary ventilation, and response to care were monitored throughout the procedure. The Colonoscope was introduced through the anus and advanced to 5 cm into the ileum. The colonoscopy was performed without difficulty. The patient tolerated the procedure well. The quality of the bowel preparation was good. Findings: The perianal and digital rectal examinations were normal. Multiple medium-mouthed diverticula were found in the sigmoid colon. Internal hemorrhoids were found during retroflexion. The hemorrhoids were medium-sized. The terminal ileum contained scattered pseudopolyps. This was biopsied with a cold forceps for histology. Two small submucosal dark spots. (likely small venous blebs) was found in the sigmoid colon. Biopsies were taken with a cold forceps for histology. To prevent bleeding after the biopsy, two hemostatic clips were successfully placed. There was no bleeding at the end of the procedure. The exam was otherwise without abnormality on direct and retroflexion views. Impression: - Diverticulosis in the sigmoid colon. - Moderate to large non bleeding Internal hemorrhoids. - Pseudopolyps in the terminal ileum. Biopsied. - A few submucosal dark blue spots/small venous blebs in the sigmoid colon. Biopsied. Clips were placed. - The examination was otherwise normal on direct and retroflexion views. Recommendation: - Telephone endoscopist for pathology results in 2 weeks. - Follow up with Dr Rodriguez as planned. - Return to my office after studies are complete. Umair Eid MD Umair EID MD 12/08/2019 2:10:00 PM Electronically signed by Umair EID MD Number of Addenda: 0 Note Initiated On: 12/08/2019 1:23 PM Estimated Blood Loss: Estimated blood loss: none.
[2019-12-08 14:25] VITALS: BP 168/88
== END 2019-12-08 14:45 | disposition home or self-care (01) ==
LOC: M OPP 11:38
PROVIDERS: ATTEND Internal Medicine Gastroenterology
DX: D50.9 Iron deficiency anemia, unspecified (principal); K92.1 Melena; K57.90 Diverticulosis of intestine, part unspecified, without perforation or abscess without bleeding; K64.8 Other hemorrhoids; K63.89 Other specified diseases of intestine; K31.7 Polyp of stomach and duodenum
CPT/HCPCS: 43239; 45380; 88305; J3010

== ENCOUNTER → 2020-01-29 | Outpatient (REF) | payer BC ==
[~2020-01-29] MED LIST changes: -NS 1,000 ML IV ONE
[2020-01-29 14:45] LABS: HEMATOCRIT 46.7 % (42.0-52.0); HEMOGLOBIN 15.6 g/dl (13.5-17.5); MEAN CORPUSCULAR HEMOGLOBIN 27.6 pg (27.0-33.0); MEAN CORPUSCULAR HGB CONC 33.4 g/dl (32.0-36.5); MEAN CORPUSCULAR VOLUME 82.5 fl (80.0-96.0); PLATELET COUNT, AUTOMATED 164 10^3/uL (150-450); RED BLOOD COUNT 5.66 10^6/uL (4.30-6.10); WHITE BLOOD COUNT 8.2 10^3/uL (4.0-10.0)
[2020-01-29 17:06] LABS: HEMOGLOBIN A1c 6.1 %
[2020-01-29 21:23] LABS: ALBUMIN 3.9 GM/DL (3.2-5.2); ALT/SGPT 35 U/L (12-78); BILIRUBIN,TOTAL 0.5 MG/DL (0.2-1.0); BLOOD UREA NITROGEN 14 MG/DL (7-18); CALCIUM LEVEL 9.2 MG/DL (8.8-10.2); CARBON DIOXIDE LEVEL 29 MEQ/L (21-32); CHLORIDE LEVEL 107 MEQ/L (98-107); CHOLESTEROL LEVEL 137 MG/DL (<200); CHOLESTEROL RISK RATIO 3.702 (<5); FERRITIN 35 NG/ML (26-388); GLOMERULAR FILTRATION RATE > 60.0 (>49); GLUCOSE, FASTING 119 MG/DL (70-100); HDL CHOLESTEROL 37 MG/DL (>40); IRON (FE) 70 UG/DL (65-175); LDL CHOLESTEROL 66 MG/DL (<100); NON-HDL-C 100 MG/DL; PERCENT SATURATION 21.3 % (19.7-50.0); POTASSIUM SERUM 3.9 MEQ/L (3.5-5.1); SODIUM LEVEL 142 MEQ/L (136-145); TOTAL IRON BINDING CAPACITY 329 UG/DL (250-450); TRIGLYCERIDES LEVEL 168 MG/DL (<150)
== END ==
LOC: M SFHCADAM 13:35
PROVIDERS: ATTEND Physician Assistant
DX: D64.9 Anemia, unspecified (principal); E78.5 Hyperlipidemia, unspecified; E11.9 Type 2 diabetes mellitus without complications

== ENCOUNTER → 2020-03-24 | Outpatient (REF) | payer BC ==
[2020-03-24 13:32] LABS: HEMATOCRIT 48.5 % (42.0-52.0); HEMOGLOBIN 15.6 g/dl (13.5-17.5); MEAN CORPUSCULAR HEMOGLOBIN 27.4 pg (27.0-33.0); MEAN CORPUSCULAR HGB CONC 32.2 g/dl (32.0-36.5); MEAN CORPUSCULAR VOLUME 85.2 fl (80.0-96.0); PLATELET COUNT, AUTOMATED 216 10^3/uL (150-450); RED BLOOD COUNT 5.69 10^6/uL (4.30-6.10); WHITE BLOOD COUNT 8.3 10^3/uL (4.0-10.0)
[2020-03-24 13:50] LABS: HEMOGLOBIN A1c 5.9 %
[2020-03-24 14:04] LABS: BLOOD UREA NITROGEN 18 MG/DL (7-18); CALCIUM LEVEL 9.6 MG/DL (8.8-10.2); CARBON DIOXIDE LEVEL 30 MEQ/L (21-32); CHLORIDE LEVEL 105 MEQ/L (98-107); CREATININE FOR GFR 1.19 MG/DL (0.70-1.30); FERRITIN 54 NG/ML (26-388); GLOMERULAR FILTRATION RATE > 60.0 (>49); GLUCOSE, FASTING 113 MG/DL (70-100); IRON (FE) 73 UG/DL (65-175); PERCENT SATURATION 21.9 % (19.7-50.0); POTASSIUM SERUM 3.9 MEQ/L (3.5-5.1); SODIUM LEVEL 141 MEQ/L (136-145); TOTAL IRON BINDING CAPACITY 334 UG/DL (250-450)
== END ==
LOC: M SFHCADAM 09:04
PROVIDERS: ATTEND Family Medicine
DX: D50.0 Iron deficiency anemia secondary to blood loss (chronic) (principal); E11.9 Type 2 diabetes mellitus without complications

== ENCOUNTER → 2020-05-21 | Outpatient (REF) | payer BC ==
[2020-05-21 11:54] LABS: HEMOGLOBIN 15.7 g/dl (13.5-17.5); MEAN CORPUSCULAR HGB CONC 32.7 g/dl (32.0-36.5); MEAN CORPUSCULAR VOLUME 85.6 fl (80.0-96.0); PLATELET COUNT, AUTOMATED 184 10^3/uL (150-450); RED BLOOD COUNT 5.61 10^6/uL (4.30-6.10); WHITE BLOOD COUNT 7.2 10^3/uL (4.0-10.0)
[2020-05-21 12:11] LABS: ALBUMIN 3.9 GM/DL (3.2-5.2); ALT/SGPT 41 U/L (12-78); BILIRUBIN,TOTAL 0.4 MG/DL (0.2-1.0); BLOOD UREA NITROGEN 18 MG/DL (7-18); CALCIUM LEVEL 9.3 MG/DL (8.8-10.2); CARBON DIOXIDE LEVEL 32 MEQ/L (21-32); CHLORIDE LEVEL 107 MEQ/L (98-107); CHOLESTEROL LEVEL 127 MG/DL (<200); CHOLESTEROL RISK RATIO 3.527 (<5); FERRITIN 36 NG/ML (26-388); GLOMERULAR FILTRATION RATE > 60.0 (>49); GLUCOSE, FASTING 127 MG/DL (70-100); HDL CHOLESTEROL 36 MG/DL (>40); IRON (FE) 72 UG/DL (65-175); LDL CHOLESTEROL 67 MG/DL (<100); NON-HDL-C 91 MG/DL; PERCENT SATURATION 21.6 % (19.7-50.0); POTASSIUM SERUM 4.2 MEQ/L (3.5-5.1); SODIUM LEVEL 141 MEQ/L (136-145); TOTAL IRON BINDING CAPACITY 333 UG/DL (250-450); TOTAL PROTEIN 7.2 GM/DL (6.4-8.2); TRIGLYCERIDES LEVEL 122 MG/DL (<150)
[2020-05-21 13:51] LABS: HEMOGLOBIN A1c 6.1 %
== END ==
LOC: M PLALAB 08:20
PROVIDERS: ATTEND Family Medicine
DX: D50.0 Iron deficiency anemia secondary to blood loss (chronic) (principal); E78.5 Hyperlipidemia, unspecified; E11.9 Type 2 diabetes mellitus without complications

== ENCOUNTER → 2020-09-15 | Outpatient (REF) | payer BC ==
[~2020-09-15] MED LIST changes: -LISI-538 PO; +LISI20TA33 PO
[2020-09-15 10:04] LABS: HEMATOCRIT 45.8 % (42.0-52.0); HEMOGLOBIN 15.6 g/dl (13.5-17.5); MEAN CORPUSCULAR HEMOGLOBIN 28.6 pg (27.0-33.0); MEAN CORPUSCULAR HGB CONC 34.1 g/dl (32.0-36.5); PLATELET COUNT, AUTOMATED 183 10^3/uL (150-450); RED BLOOD COUNT 5.45 10^6/uL (4.30-6.10); WHITE BLOOD COUNT 7.3 10^3/uL (4.0-10.0)
[2020-09-15 10:40] LABS: ALT/SGPT 43 U/L (12-78); BILIRUBIN,TOTAL 0.4 MG/DL (0.2-1.0); BLOOD UREA NITROGEN 18 MG/DL (7-18); CALCIUM LEVEL 9.4 MG/DL (8.8-10.2); CARBON DIOXIDE LEVEL 32 MEQ/L (21-32); CHLORIDE LEVEL 107 MEQ/L (98-107); CREATININE FOR GFR 1.08 MG/DL (0.70-1.30); FERRITIN 22 NG/ML (26-388); GLOMERULAR FILTRATION RATE > 60.0 (>49); GLUCOSE, FASTING 145 MG/DL (70-100); IRON (FE) 84 UG/DL (65-175); PERCENT SATURATION 24.6 % (19.7-50.0); POTASSIUM SERUM 4.2 MEQ/L (3.5-5.1); SODIUM LEVEL 141 MEQ/L (136-145); TOTAL IRON BINDING CAPACITY 341 UG/DL (250-450); TOTAL PROTEIN 7.2 GM/DL (6.4-8.2)
[2020-09-15 10:45] LABS: HEMOGLOBIN A1c 6.6 %
== END ==
LOC: M PLALAB 08:43
PROVIDERS: ATTEND Family Medicine
DX: D50.0 Iron deficiency anemia secondary to blood loss (chronic) (principal); E11.9 Type 2 diabetes mellitus without complications

== ENCOUNTER → 2020-12-08 | Outpatient (CLI) | payer BC ==
--- NOTE | 2020-12-09 14:15 | SLEEPHOME ---
DATE: 12/08/2020 ORDERED BY: Nini Marie Diagnostic home sleep testing was performed due to concern for the obstructive sleep apnea syndrome. For testing, a nocturnal T3 respiratory monitoring device was used. Continuous record was made of pulse, oxygen saturation, air flow, chest and abdominal strain, and body position. There was 9 hours and 59 minutes of data reviewed. There was 7 hours and 58 minutes marked as time in bed. During the interval marked time in bed, there were 137 respiratory events identified of 10 seconds in duration or greater for a respiratory event index of 17.2 per hour. The events were primarily obstructive. There were 20 mixed and central apneas seen. Baseline pulse rate was 64. Pulse rate ranged between 54-88. Baseline oxygen saturation was 95%. Saturations fell as low as 84%, and testing was performed in both the supine and nonsupine positions. IMPRESSION: Abnormal home sleep testing with repetitive respiratory events and oxygen desaturations to 84% with a respiratory event index of 17.2 per hour is consistent with the obstructive sleep apnea syndrome. RECOMMENDATION: The patient should be encouraged to undergo referral for formal sleep evaluation.
== END ==
LOC: M SLEEP HO 10:17
PROVIDERS: ATTEND Physician Assistant
DX: G47.30 Sleep apnea, unspecified (principal)

== ENCOUNTER → 2021-01-19 | Outpatient (CLI) | payer BC ==
[2021-01-19 09:54] LABS: HEMATOCRIT 45.2 % (42.0-52.0); HEMOGLOBIN 15.2 g/dl (13.5-17.5); MEAN CORPUSCULAR HEMOGLOBIN 28.1 pg (27.0-33.0); MEAN CORPUSCULAR HGB CONC 33.6 g/dl (32.0-36.5); MEAN CORPUSCULAR VOLUME 83.7 fl (80.0-96.0); PLATELET COUNT, AUTOMATED 175 10^3/uL (150-450); WHITE BLOOD COUNT 6.8 10^3/uL (4.0-10.0)
[2021-01-19 10:19] LABS: BLOOD UREA NITROGEN 18 MG/DL (7-18); CALCIUM LEVEL 9.4 MG/DL (8.8-10.2); CARBON DIOXIDE LEVEL 29 MEQ/L (21-32); CHLORIDE LEVEL 108 MEQ/L (98-107); CREATININE FOR GFR 1.17 MG/DL (0.70-1.30); FERRITIN 40 NG/ML (26-388); GLOMERULAR FILTRATION RATE > 60.0 (>49); GLUCOSE, FASTING 139 MG/DL (70-100); IRON (FE) 89 UG/DL (65-175); PERCENT SATURATION 25.6 % (19.7-50.0); POTASSIUM SERUM 3.8 MEQ/L (3.5-5.1); SODIUM LEVEL 142 MEQ/L (136-145); TOTAL IRON BINDING CAPACITY 348 UG/DL (250-450)
[2021-01-19 10:56] LABS: HEMOGLOBIN A1c 6.4 %
== END ==
LOC: M LAB 09:00
PROVIDERS: ATTEND Family Medicine
DX: E11.9 Type 2 diabetes mellitus without complications (principal)

== ENCOUNTER → 2021-03-09 | Outpatient (CLI) | payer BC ==
--- NOTE | 2021-03-10 14:26 | SLEEPCENT ---
DATE: 03/09/2021 ORDERED BY: Chandan Cedeno Nocturnal polysomnography was performed for the titration of pressure therapy in this patient with a clinical diagnosis of obstructive sleep apnea syndrome, confirmed by home testing reviewing a respiratory event index of 17.2. For testing, a ResMed AirFit F20 full-face mask of large size was used. There was 4 cm of water pressure applied to the circuit, and the lights were extinguished. There was 7 hours and 8 minutes of data reviewed. There was 260 minutes of sleep identified. Sleep latency was mildly prolonged at 16.5 minutes. REM latency was prolonged at 164 minutes. Sleep architecture improved with optimal pressure therapy, and there were three REM cycles noted. Overall sleep efficiency was 61.5%. The electrocardiogram showed a sinus rhythm with an average heart rate of 58 beats per minute. Rate ranged 50-75. EEG showed normal waveforms for wake and sleep. Respiratory events were fully palliated with CPAP at a pressure of +6. Significant limb activity persisted in the EMG leads. Limb movement arousal index on this occasion was 6.2. IMPRESSION: Obstructive sleep apnea syndrome (G47.33). RECOMMENDATION: Nightly use of pressure therapy, 6 cm of water.
== END ==
LOC: M SLEEP 20:00
PROVIDERS: ATTEND Physician Assistant
DX: G47.33 Obstructive sleep apnea (adult) (pediatric) (principal)

== ENCOUNTER → 2021-04-22 | Outpatient (REF) | payer MEDICARE, BC | LOC: M LAB REF 16:55 | PROVIDERS: ATTEND Ophthalmology | DX: D23.122 Other benign neoplasm of skin of left lower eyelid, including canthus (principal) ==

== ENCOUNTER → 2021-09-17 | Outpatient (CLI) | payer BC, MEDICARE ==
[~2021-09-17] MED LIST changes: -D31000TA2 PO; +VITA100093 PO
[2021-09-17 09:40] LABS: HEMATOCRIT 42.2 % (42.0-52.0); HEMOGLOBIN 14.3 g/dl (13.5-17.5); MEAN CORPUSCULAR HEMOGLOBIN 28.6 pg (27.0-33.0); MEAN CORPUSCULAR HGB CONC 33.9 g/dl (32.0-36.5); MEAN CORPUSCULAR VOLUME 84.4 fl (80.0-96.0); PLATELET COUNT, AUTOMATED 162 10^3/uL (150-450); WHITE BLOOD COUNT 6.2 10^3/uL (4.0-10.0)
[2021-09-17 10:09] LABS: ALBUMIN 3.7 GM/DL (3.2-5.2); ALT/SGPT 48 U/L (12-78); BILIRUBIN,TOTAL 0.6 MG/DL (0.2-1.0); BLOOD UREA NITROGEN 17 MG/DL (7-18); CALCIUM LEVEL 9.2 MG/DL (8.8-10.2); CARBON DIOXIDE LEVEL 31 MEQ/L (21-32); CHLORIDE LEVEL 110 MEQ/L (98-107); CHOLESTEROL LEVEL 126 MG/DL (<200); CHOLESTEROL RISK RATIO 3.705 (<5); CREATININE FOR GFR 1.23 MG/DL (0.70-1.30); FERRITIN 45 NG/ML (26-388); GLOMERULAR FILTRATION RATE > 60.0 (>49); GLUCOSE, FASTING 159 MG/DL (70-100); HDL CHOLESTEROL 34 MG/DL (>40); IRON (FE) 76 UG/DL (65-175); LDL CHOLESTEROL 57 MG/DL (<100); NON-HDL-C 92 MG/DL; PERCENT SATURATION 22.9 % (19.7-50.0); POTASSIUM SERUM 3.7 MEQ/L (3.5-5.1); SODIUM LEVEL 144 MEQ/L (136-145); TOTAL IRON BINDING CAPACITY 332 UG/DL (250-450); TRIGLYCERIDES LEVEL 174 MG/DL (<150)
[2021-09-17 10:19] LABS: HEMOGLOBIN A1c 7.9 %
== END ==
LOC: M LAB 08:55
PROVIDERS: ATTEND Family Medicine
DX: D50.9 Iron deficiency anemia, unspecified (principal); E11.9 Type 2 diabetes mellitus without complications; Z12.5 Encounter for screening for malignant neoplasm of prostate; K75.81 Nonalcoholic steatohepatitis (NASH); E78.5 Hyperlipidemia, unspecified; G47.10 Hypersomnia, unspecified
CPT/HCPCS: 36415; 80053; 80061; 82728; 83036; 83550; 85027; 85046; G0103

== ENCOUNTER → 2021-12-15 | Outpatient (CLI) | payer MEDICARE ==
[2021-12-15 10:43] LABS: HEMOGLOBIN A1c 7.6 %
[2021-12-15 10:57] LABS: BLOOD UREA NITROGEN 14 MG/DL (7-18); CALCIUM LEVEL 9.3 MG/DL (8.8-10.2); CARBON DIOXIDE LEVEL 31 MEQ/L (21-32); CHLORIDE LEVEL 104 MEQ/L (98-107); CREATININE FOR GFR 1.21 MG/DL (0.70-1.30); GLOMERULAR FILTRATION RATE > 60.0 (>49); GLUCOSE, FASTING 180 MG/DL (70-100); POTASSIUM SERUM 4.2 MEQ/L (3.5-5.1); SODIUM LEVEL 139 MEQ/L (136-145)
== END ==
LOC: M LAB 09:07
PROVIDERS: ATTEND Family Medicine
DX: E11.9 Type 2 diabetes mellitus without complications (principal)

== ENCOUNTER 2022-02-20 11:21 | Emergency (ER) | payer MEDICARE ==
[~2022-02-20] VITALS: Ht 182.9 cm; Wt 104.5 kg
[~2022-02-20 11:21] MED LIST changes: +INDA1.253 PO; -INDA125TA PO
[2022-02-20 12:46] LABS: BASO # 0.1 10^3/uL (0.0-0.2); BASO % 0.6 % (0.0-1.0); EOS # 0.2 10^3/uL (0.0-0.5); EOS % 2.1 % (0.0-3.0); HEMATOCRIT 43.2 % (42.0-52.0); HEMOGLOBIN 14.6 g/dl (13.5-17.5); LYMPH # 2.2 10^3/uL (1.5-5.0); LYMPH % 27.9 % (24.0-44.0); MEAN CORPUSCULAR HEMOGLOBIN 28.3 pg (27.0-33.0); MEAN CORPUSCULAR HGB CONC 33.8 g/dl (32.0-36.5); MEAN CORPUSCULAR VOLUME 83.9 fl (80.0-96.0); MONO # 0.5 10^3/uL (0.0-0.8); NEUTROPHILS % 62.8 % (36.0-66.0); PLATELET COUNT, AUTOMATED 171 10^3/uL (150-450); RED BLOOD COUNT 5.15 10^6/uL (4.30-6.10)
[2022-02-20 12:57] LABS: PARTIAL THROMBOPLASTIN TIME 28.6 SECONDS (25.9-37.0); PROTHROMBIN TIME 13.6 SECONDS (12.7-14.5)
[2022-02-20] MEDS ORDERED: ASPIRIN 81 MG CHEW TABLET PO ONE (13:00)
[2022-02-20 13:18] LABS: CK-MB VALUE MASS 2.5 NG/ML (<3.6); MB/CK RELATIVE INDEX 0.83 (< OR =4)
[2022-02-20 13:31] LABS: ALBUMIN 3.8 GM/DL (3.2-5.2); ALT/SGPT 44 U/L (12-78); BILIRUBIN,DIRECT 0.1 MG/DL (0.0-0.2); BILIRUBIN,TOTAL 0.4 MG/DL (0.2-1.0); BLOOD UREA NITROGEN 14 MG/DL (7-18); CALCIUM LEVEL 9.5 MG/DL (8.8-10.2); CARBON DIOXIDE LEVEL 29 MEQ/L (21-32); CHLORIDE LEVEL 106 MEQ/L (98-107); CREATININE FOR GFR 1.19 MG/DL (0.70-1.30); FREE T4 0.85 NG/DL (0.76-1.46); GLOMERULAR FILTRATION RATE > 60.0 (>49); GLUCOSE, FASTING 248 MG/DL (70-100); LIPASE 177 U/L (73-393); NT-PRO BNP 65 PG/ML (<125); POTASSIUM SERUM 3.8 MEQ/L (3.5-5.1); SODIUM LEVEL 140 MEQ/L (136-145); TOTAL PROTEIN 7.2 GM/DL (6.4-8.2)
[2022-02-20] MEDS ORDERED: ISOVUE-370 76% 100ML VIAL As Ordered ONE (13:50)
[2022-02-20 13:58] LABS: RSV AMPLIFICATION NEGATIVE (NEGATIVE)
[2022-02-20 14:33] LABS: CK-MB VALUE MASS 2.2 NG/ML (<3.6); MB/CK RELATIVE INDEX 0.72 (< OR =4)
[2022-02-20 15:53] VITALS: BP 138/72
== END 2022-02-20 15:59 | disposition home or self-care (01) ==
LOC: M ED 11:21
DX: R07.9 Chest pain, unspecified (principal); R91.1 Solitary pulmonary nodule; K76.0 Fatty (change of) liver, not elsewhere classified; E11.9 Type 2 diabetes mellitus without complications; Z88.0 Allergy status to penicillin; Z88.6 Allergy status to analgesic agent
CPT/HCPCS: 36415; 71045; 71275; 80048; 80076; 82550; 82553; 83690; 83880; 84439; 84443; 84484; 85025; 85610; 85730; 87631; 93005; 93041; 93970; 94760; 99284; Q9967

== ENCOUNTER → 2022-02-24 | Outpatient (REF) | payer MEDICARE ==
[2022-02-24 14:23] LABS: HEMOGLOBIN A1c 7.2 %
[2022-02-24 14:53] LABS: C REACTIVE PROTEIN QUANTITATIV 1.56 MG/DL (0.00-0.30)
== END ==
LOC: M SFHCADAM 10:12
PROVIDERS: ATTEND Family Medicine
DX: E11.9 Type 2 diabetes mellitus without complications (principal); E78.5 Hyperlipidemia, unspecified; M62.81 Muscle weakness (generalized); R53.83 Other fatigue; R51.9 Headache, unspecified

== ENCOUNTER → 2022-03-09 | Outpatient (CLI) | payer MEDICARE | LOC: M PLAIMG 09:31 | PROVIDERS: ATTEND Family Medicine | DX: R51.9 Headache, unspecified (principal) ==

== ENCOUNTER → 2022-09-18 | Outpatient (CLI) | payer MEDICARE ==
[2022-09-18 09:26] LABS: HEMATOCRIT 43.7 % (42.0-52.0); HEMOGLOBIN 14.4 g/dl (13.5-17.5); MEAN CORPUSCULAR HEMOGLOBIN 27.6 pg (27.0-33.0); MEAN CORPUSCULAR VOLUME 83.7 fl (80.0-96.0); PLATELET COUNT, AUTOMATED 179 10^3/uL (150-450); RED BLOOD COUNT 5.22 10^6/uL (4.30-6.10); WHITE BLOOD COUNT 6.8 10^3/uL (4.0-10.0)
[2022-09-18 09:36] LABS: HEMOGLOBIN A1c 7.5 % (4.0-6.0)
[2022-09-18 09:56] LABS: ALBUMIN 3.8 G/DL (3.2-5.2); ALKALINE PHOSPHATASE 87 U/L (46-116); ALT/SGPT 37 U/L (7.0-40); AST/SGOT 30 U/L (<34); BILIRUBIN,TOTAL 0.5 MG/DL (0.3-1.2); BLOOD UREA NITROGEN 19 MG/DL (9-23); CALCIUM LEVEL 9.1 MG/DL (8.3-10.6); CARBON DIOXIDE LEVEL 30 MMOL/L (20-31); CHLORIDE LEVEL 105 MMOL/L (98-107); CHOLESTEROL LEVEL 128 MG/DL (<200); CHOLESTEROL RISK RATIO 4.47 (<5); CREATININE FOR GFR 1.13 MG/DL (0.70-1.30); GLOMERULAR FILTRATION RATE > 60.0 (>49); GLUCOSE, FASTING 171 MG/DL (74-106); HDL CHOLESTEROL 28.6 MG/DL (>40); LDL CHOLESTEROL 54.4 MG/DL (<100); NON-HDL-C 99.4 MG/DL; POTASSIUM SERUM 3.8 MMOL/L (3.5-5.1); SODIUM LEVEL 139 MMOL/L (136-145); TOTAL PROTEIN 6.9 G/DL (5.7-8.2); TRIGLYCERIDES LEVEL 225 MG/DL (<150)
== END ==
LOC: M LAB 08:57
PROVIDERS: ATTEND Family Medicine
DX: E11.9 Type 2 diabetes mellitus without complications (principal)

== ENCOUNTER → 2022-09-19 | Outpatient (CLI) | payer MEDICARE ==
[~2022-09-19] MED LIST changes: +ISOVUE-370 76% 100ML VIAL As Ordered ONE
== END ==
LOC: M RAD 07:08
PROVIDERS: ATTEND Family Medicine
DX: R91.1 Solitary pulmonary nodule (principal)
CPT/HCPCS: 71260; Q9967

== ENCOUNTER → 2023-01-04 | Outpatient (CLI) | payer MEDICARE ==
[~2023-01-04] MED LIST changes: -ISOVUE-370 76% 100ML VIAL As Ordered ONE
[2023-01-04 10:43] LABS: BLOOD UREA NITROGEN 18 MG/DL (9-23); CALCIUM LEVEL 9.4 MG/DL (8.3-10.6); CARBON DIOXIDE LEVEL 27 MMOL/L (20-31); CHLORIDE LEVEL 106 MMOL/L (98-107); CREATININE FOR GFR 1.06 MG/DL (0.70-1.30); GLOMERULAR FILTRATION RATE > 60.0 (>49); GLUCOSE, FASTING 107 MG/DL (74-106); POTASSIUM SERUM 3.9 MMOL/L (3.5-5.1); SODIUM LEVEL 143 MMOL/L (136-145)
[2023-01-04 11:10] LABS: HEMOGLOBIN A1c 6.2 % (4.0-6.0)
== END ==
LOC: M LAB 09:34
PROVIDERS: ATTEND Family Medicine
DX: E11.9 Type 2 diabetes mellitus without complications (principal)

== ENCOUNTER → 2023-05-30 | Outpatient (REF) | payer MEDICARE ==
[2023-05-30 16:58] LABS: HEMATOCRIT 47.3 % (42.0-52.0); HEMOGLOBIN 14.9 g/dl (13.5-17.5); MEAN CORPUSCULAR HEMOGLOBIN 26.8 pg (27.0-33.0); MEAN CORPUSCULAR HGB CONC 31.5 g/dl (32.0-36.5); MEAN CORPUSCULAR VOLUME 84.9 fl (80.0-96.0); PLATELET COUNT, AUTOMATED 252 10^3/uL (150-450); RED BLOOD COUNT 5.57 10^6/uL (4.30-6.10); WHITE BLOOD COUNT 8.1 10^3/uL (4.0-10.0)
[2023-05-30 17:18] LABS: BLOOD UREA NITROGEN 18 MG/DL (9-23); CALCIUM LEVEL 10.1 MG/DL (8.3-10.6); CARBON DIOXIDE LEVEL 29 MMOL/L (20-31); CHLORIDE LEVEL 109 MMOL/L (98-107); GLOMERULAR FILTRATION RATE > 60.0 (>49); GLUCOSE, FASTING 76 MG/DL (74-106); IRON (FE) 168 UG/DL (65-175); PERCENT SATURATION 47.2 % (19.7-50.0); POTASSIUM SERUM 4.6 MMOL/L (3.5-5.1); SODIUM LEVEL 144 MMOL/L (136-145); TOTAL IRON BINDING CAPACITY 356 UG/DL (250-425)
[2023-05-30 17:50] LABS: HEMOGLOBIN A1c 5.9 % (4.0-6.0)
== END ==
LOC: M SFHCADAM 11:50
PROVIDERS: ATTEND Family Medicine
DX: E11.9 Type 2 diabetes mellitus without complications (principal); D50.0 Iron deficiency anemia secondary to blood loss (chronic)

== ENCOUNTER → 2023-09-26 | Outpatient (CLI) | payer MEDICARE ==
[~2023-09-26] MED LIST changes: +INDA2.5T2 PO; -INDA25TAB PO
[2023-09-26 09:38] LABS: HEMATOCRIT 49.4 % (42.0-52.0); HEMOGLOBIN 16.1 g/dl (13.5-17.5); MEAN CORPUSCULAR HEMOGLOBIN 27.2 pg (27.0-33.0); MEAN CORPUSCULAR HGB CONC 32.6 g/dl (32.0-36.5); MEAN CORPUSCULAR VOLUME 83.4 fl (80.0-96.0); PLATELET COUNT, AUTOMATED 182 10^3/uL (150-450); RED BLOOD COUNT 5.92 10^6/uL (4.30-6.10); WHITE BLOOD COUNT 7.2 10^3/uL (4.0-10.0)
[2023-09-26 09:48] LABS: HEMOGLOBIN A1c 5.8 % (4.0-6.0)
[2023-09-26 09:53] LABS: PSA SCREENING 2.29 NG/ML (< 4.00)
[2023-09-26 09:54] LABS: CREATININE, URINE 156.8 MG/DL; MAU/CREAT RATIO 4.4 MCG/MG (0.0-30.0)
[2023-09-26 09:55] LABS: ALBUMIN 3.7 G/DL (3.2-5.2); ALKALINE PHOSPHATASE 107 U/L (46-116); ALT/SGPT 25 U/L (7.0-40); AST/SGOT 28 U/L (<34); BILIRUBIN,TOTAL 0.5 MG/DL (0.3-1.2); BLOOD UREA NITROGEN 17 MG/DL (9-23); CALCIUM LEVEL 9.1 MG/DL (8.3-10.6); CARBON DIOXIDE LEVEL 28 MMOL/L (20-31); CHLORIDE LEVEL 109 MMOL/L (98-107); CHOLESTEROL LEVEL 119 MG/DL (<200); CHOLESTEROL RISK RATIO 3.66 (<5); CREATININE FOR GFR 1.17 MG/DL (0.70-1.30); GLOMERULAR FILTRATION RATE > 60.0 (>49); GLUCOSE, FASTING 112 MG/DL (74-106); HDL CHOLESTEROL 32.5 MG/DL (>40); LDL CHOLESTEROL 61.1 MG/DL (<100); NON-HDL-C 86.5 MG/DL; SODIUM LEVEL 145 MMOL/L (136-145); TOTAL PROTEIN 6.9 G/DL (5.7-8.2); TRIGLYCERIDES LEVEL 127 MG/DL (<150)
== END ==
LOC: M LAB 08:25
PROVIDERS: ATTEND Family Medicine
DX: E11.9 Type 2 diabetes mellitus without complications (principal); D50.0 Iron deficiency anemia secondary to blood loss (chronic); E78.5 Hyperlipidemia, unspecified; Z12.5 Encounter for screening for malignant neoplasm of prostate
CPT/HCPCS: 36415; 80053; 80061; 82043; 83036; 85027; G0103

== ENCOUNTER → 2023-10-02 | Outpatient (CLI) | payer MEDICARE | LOC: M ADAMS 11:17 | PROVIDERS: ATTEND Family Medicine | DX: G56.22 Lesion of ulnar nerve, left upper limb (principal) ==

== ENCOUNTER → 2023-10-12 | Outpatient (CLI) | payer MEDICARE | LOC: M RAD 10:39 | PROVIDERS: ATTEND Family Medicine | DX: R91.1 Solitary pulmonary nodule (principal) ==

== ENCOUNTER → 2023-10-23 | Outpatient (CLI) | payer MEDICARE | LOC: M SOG 07:52 | PROVIDERS: ATTEND Physician Assistant | DX: M25.522 Pain in left elbow (principal) ==

== ENCOUNTER → 2024-03-19 | Outpatient (REF) | payer MEDICARE ==
[2024-03-19 13:10] LABS: BASO # 0.1 10^3/uL (0.0-0.2); BASO % 0.7 % (0.0-1.0); EOS # 0.1 10^3/uL (0.0-0.5); EOS % 1.9 % (0.0-3.0); HEMATOCRIT 49.1 % (42.0-52.0); HEMOGLOBIN 16.2 g/dl (13.5-17.5); LYMPH # 1.6 10^3/uL (1.5-5.0); LYMPH % 23.1 % (24.0-44.0); MEAN CORPUSCULAR HEMOGLOBIN 28.1 pg (27.0-33.0); MEAN CORPUSCULAR VOLUME 85.1 fl (80.0-96.0); MONO # 0.4 10^3/uL (0.0-0.8); MONO % 6.4 % (2.0-8.0); NEUTROPHILS # 4.6 10^3/uL (1.5-8.5); NEUTROPHILS % 67.5 % (36.0-66.0); PLATELET COUNT, AUTOMATED 169 10^3/uL (150-450); RED BLOOD COUNT 5.77 10^6/uL (4.30-6.10); WHITE BLOOD COUNT 6.8 10^3/uL (4.0-10.0)
[2024-03-19 13:19] LABS: BLOOD UREA NITROGEN 14 MG/DL (9-23); CALCIUM LEVEL 9.3 MG/DL (8.3-10.6); CARBON DIOXIDE LEVEL 29 MMOL/L (20-31); CHLORIDE LEVEL 108 MMOL/L (98-107); CREATININE FOR GFR 1.06 MG/DL (0.70-1.30); GLOMERULAR FILTRATION RATE > 60.0 (>49); GLUCOSE, FASTING 137 MG/DL (74-106); SODIUM LEVEL 139 MMOL/L (136-145)
[2024-03-19 13:20] LABS: FREE T4 1.24 NG/DL (0.89-1.76)
[2024-03-19 13:21] LABS: THYROID STIMULATING HORMONE 1.553 uIU/ML (0.55-4.78)
[2024-03-19 13:31] LABS: HEMOGLOBIN A1c 5.9 % (4.0-6.0)
== END ==
LOC: M SFHCADAM 09:23
PROVIDERS: ATTEND Physician Assistant
DX: I11.9 Hypertensive heart disease without heart failure (principal); E11.9 Type 2 diabetes mellitus without complications

== ENCOUNTER → 2024-03-20 | Outpatient (CLI) | payer MEDICARE | LOC: M RAD 08:33 | PROVIDERS: ATTEND Physician Assistant | DX: I11.9 Hypertensive heart disease without heart failure (principal) ==

== ENCOUNTER → 2024-04-01 | Outpatient (CLI) | payer MEDICARE ==
[~2024-04-01] MED LIST changes: +ISOVUE-370 76% 100ML VIAL As Ordered ONE
== END ==
LOC: M RAD 14:34
PROVIDERS: ATTEND Physician Assistant
DX: N28.89 Other specified disorders of kidney and ureter (principal)
CPT/HCPCS: 74170; Q9967

== ENCOUNTER → 2024-04-22 | Outpatient (REF) | payer MEDICARE ==
[~2024-04-22] MED LIST changes: -ISOVUE-370 76% 100ML VIAL As Ordered ONE
[2024-04-22 12:40] LABS: HEMATOCRIT 48.2 % (42.0-52.0); HEMOGLOBIN 15.7 g/dl (13.5-17.5); MEAN CORPUSCULAR HEMOGLOBIN 27.8 pg (27.0-33.0); MEAN CORPUSCULAR HGB CONC 32.6 g/dl (32.0-36.5); MEAN CORPUSCULAR VOLUME 85.5 fl (80.0-96.0); PLATELET COUNT, AUTOMATED 165 10^3/uL (150-450); RED BLOOD COUNT 5.64 10^6/uL (4.30-6.10); WHITE BLOOD COUNT 6.5 10^3/uL (4.0-10.0)
[2024-04-22 13:06] LABS: INR 1.01; PARTIAL THROMBOPLASTIN TIME 28.7 SECONDS (24.8-34.2); PROTHROMBIN TIME 13.6 SECONDS (12.5-14.5)
[2024-04-22 13:13] LABS: ALBUMIN 3.9 G/DL (3.2-5.2); ALKALINE PHOSPHATASE 108 U/L (40-129); ALT/SGPT 25 U/L (7.0-40); AST/SGOT 19 U/L (<34); BILIRUBIN,TOTAL 0.5 MG/DL (0.3-1.2); BLOOD UREA NITROGEN 15 MG/DL (9-23); CALCIUM LEVEL 9.5 MG/DL (8.3-10.6); CARBON DIOXIDE LEVEL 30 MMOL/L (20-31); CHLORIDE LEVEL 109 MMOL/L (98-107); CREATININE FOR GFR 1.08 MG/DL (0.70-1.30); GLOMERULAR FILTRATION RATE > 60.0 (>49); GLUCOSE, FASTING 140 MG/DL (74-106); POTASSIUM SERUM 3.7 MMOL/L (3.5-5.1); SODIUM LEVEL 143 MMOL/L (136-145)
== END ==
LOC: M SFHCADAM 10:32
PROVIDERS: ATTEND Family Medicine
DX: C64.1 Malignant neoplasm of right kidney, except renal pelvis (principal)

== ENCOUNTER → 2024-05-30 | Outpatient (REF) | payer MEDICARE ==
[2024-05-30 13:58] LABS: APPEARANCE, URINE CLEAR (CLEAR); BACTERIA, URINE AUTO NEGATIVE (NEGATIVE); BILIRUBIN, URINE AUTO NEGATIVE (NEGATIVE); BLOOD, URINE BLOOD 3+ (NEGATIVE); COLOR, URINE YELLOW (YELLOW); GLUCOSE, URINE (UA) AUTO 3+ mg/dL (NEGATIVE); KETONE, URINE AUTO NEGATIVE (NEGATIVE); LEUKOCYTE ESTERASE, URINE AUTO NEGATIVE (NEGATIVE); NITRITE, URINE AUTO NEGATIVE (NEGATIVE); PROTEIN, URINE AUTO NEGATIVE (NEGATIVE); RBC, URINE AUTO 12 /HPF (0-3); SPECIFIC GRAVITY URINE AUTO 1.029 (1.002-1.035); SQUAMOUS EPITHELIAL CELL UR AU 0 /HPF (0-6); UROBILINOGEN, URINE AUTO 0.2 mg/dL (0.0-2.0); WBC, URINE AUTO 1 /HPF (0-3)
== END ==
LOC: M SFHCADAM 09:41
PROVIDERS: ATTEND Family Medicine
DX: R39.15 Urgency of urination (principal)

== ENCOUNTER → 2024-06-09 | Outpatient (CLI) | payer MEDICARE ==
[2024-06-09 14:05] LABS: BLOOD UREA NITROGEN 17 MG/DL (9-23); CALCIUM LEVEL 9.4 MG/DL (8.3-10.6); CARBON DIOXIDE LEVEL 28 MMOL/L (20-31); CHLORIDE LEVEL 107 MMOL/L (98-107); CREATININE FOR GFR 1.22 MG/DL (0.70-1.30); GLOMERULAR FILTRATION RATE > 60.0 (>49); GLUCOSE, FASTING 136 MG/DL (74-106); POTASSIUM SERUM 4.3 MMOL/L (3.5-5.1); SODIUM LEVEL 144 MMOL/L (136-145)
== END ==
LOC: M LAB 13:03
PROVIDERS: ATTEND Family Medicine
DX: I11.9 Hypertensive heart disease without heart failure (principal)

== ENCOUNTER → 2024-10-01 | Outpatient (REF) | payer MEDICARE ==
[~2024-10-01] MED LIST changes: -BAYE325T12 PO; +BAYE325T2 PO
[2024-10-01 18:14] LABS: HEMATOCRIT 47.3 % (42.0-52.0); HEMOGLOBIN 15.6 g/dl (13.5-17.5); MEAN CORPUSCULAR HEMOGLOBIN 28.7 pg (27.0-33.0); MEAN CORPUSCULAR VOLUME 87.1 fl (80.0-96.0); PLATELET COUNT, AUTOMATED 154 10^3/uL (150-450); RED BLOOD COUNT 5.43 10^6/uL (4.30-6.10); WHITE BLOOD COUNT 8.2 10^3/uL (4.0-10.0)
[2024-10-01 18:23] LABS: HEMOGLOBIN A1c 5.8 % (4.0-6.0)
[2024-10-01 18:28] LABS: TOTAL IRON BINDING CAPACITY 316 UG/DL (250-425)
[2024-10-01 18:29] LABS: ALBUMIN 4.1 G/DL (3.2-5.2); ALKALINE PHOSPHATASE 103 U/L (40-129); ALT/SGPT 28 U/L (7.0-40); AST/SGOT 23 U/L (<34); BILIRUBIN,TOTAL 0.4 MG/DL (0.3-1.2); BLOOD UREA NITROGEN 17 MG/DL (9-23); CALCIUM LEVEL 9.2 MG/DL (8.3-10.6); CARBON DIOXIDE LEVEL 25 MMOL/L (20-31); CHLORIDE LEVEL 105 MMOL/L (98-107); CHOLESTEROL LEVEL 168 MG/DL (<200); CHOLESTEROL RISK RATIO 4.98 (<5); CREATININE FOR GFR 1.15 MG/DL (0.70-1.30); GLOMERULAR FILTRATION RATE 69.3 (>49); GLUCOSE, FASTING 149 MG/DL (74-106); HDL CHOLESTEROL 33.7 MG/DL (>40); IRON (FE) 150 UG/DL (65-175); NON-HDL-C 134.3 MG/DL; PERCENT SATURATION 47.5 % (19.7-50.0); POTASSIUM SERUM 4.2 MMOL/L (3.5-5.1); SODIUM LEVEL 142 MMOL/L (136-145); TOTAL PROTEIN 7.1 G/DL (5.7-8.2); TRIGLYCERIDES LEVEL 400 MG/DL (<150)
[2024-10-01 18:30] LABS: FERRITIN 35.7 NG/ML (10.5-307.3)
== END ==
LOC: M SFHCADAM 13:27
PROVIDERS: ATTEND Family Medicine
DX: E11.9 Type 2 diabetes mellitus without complications (principal); E78.5 Hyperlipidemia, unspecified; D50.9 Iron deficiency anemia, unspecified

== ENCOUNTER → 2025-01-15 | Outpatient (CLI) | payer MEDICARE ==
[~2025-01-15] MED LIST changes: -BRIM1OPD OU; +BRIM5DRO25 OU
[2025-01-15 11:00] LABS: CALCIUM LEVEL 8.9 MG/DL (8.3-10.6); CARBON DIOXIDE LEVEL 28.0 MMOL/L (20-31); CHLORIDE LEVEL 105.0 MMOL/L (98-107); CREATININE FOR GFR 1.32 MG/DL (0.70-1.30); GLOMERULAR FILTRATION RATE 58.8 (>49); POTASSIUM SERUM 4.0 MMOL/L (3.5-5.1); SODIUM LEVEL 142.0 MMOL/L (136-145)
[2025-01-15 11:07] LABS: ESTIMATED AVERAGE GLUCOSE 134.0 MG/DL (60-110)
== END ==
LOC: M LAB 08:20
PROVIDERS: ATTEND Family Medicine
DX: E11.9 Type 2 diabetes mellitus without complications (principal)

== ENCOUNTER → 2025-02-17 | Outpatient (CLI) | payer MEDICARE | LOC: M PLAIMG 08:02 | PROVIDERS: ATTEND Family Medicine | DX: R91.1 Solitary pulmonary nodule (principal) ==

== ENCOUNTER → 2025-02-23 | Outpatient (REF) | payer MEDICARE | LOC: M SFHCLERA 17:13 | DX: R35.0 Frequency of micturition (principal) ==

== ENCOUNTER → 2025-03-12 | Outpatient (CLI) | payer MEDICARE | LOC: M ADAMS 14:07 | PROVIDERS: ATTEND Physician Assistant | DX: M54.50 Low back pain, unspecified (principal); M51.369 Other intervertebral disc degeneration, lumbar region without mention of lumbar back pain or lower extremity pain ==